=== PATIENT | female | born 1995 | race Hispanic/Latino ===

== ENCOUNTER 2018-04-18 12:19 | Emergency (ER) | payer SELFPAY ==
--- NOTE | 2018-04-18 12:48 | RAD REPORT ---
EXAM DESCRIPTION: CT - Head Brain Wo Cont - 04/18/2018 12:42 pm CLINICAL HISTORY: fall, seizure COMPARISON: No comparisonsHead Brain Wo Cont dated 01/26/2016; HEAD BRAIN W O CONTRAST dated 5 TECHNIQUE: All CT scans are performed using dose optimization technique as appropriate and may inclu de automated exposure control or mA/KV adjustment according to patient size. FINDINGS: No intracranial hemorrhage, hydrocephalus or extra-axial fluid collection.No areas of brai n edema or evidence of midline shift. The paranasal sinuses and mastoids are clear. The calvarium is intact. IMPRESSION: No acute intracranial abnormality.
[2018-04-18] MEDS ORDERED: levETIRAcetam 1,000 MG in NA CHLORIDE 0.9% 100 ML IV ONE (13:00)
[2018-04-18 13:03] LABS: Absolute Lymphocytes (CBC) 1.2 K/uL (0.7-4.9); Absolute Monocytes 0.3 K/uL (0.1-1.3); BUN Blood Urea Nitrogen 7 mg/dL (7-18); Basophils % 0.6 % (0-1.3); Bicarbonate 24 mmol/L (21-32); Eosinophils % 0.2 % (0-4.4); Glucose Level 103 mg/dL (74-106); Hematocrit 42.2 % (36.0-45.0); Lymphocytes % 11.4 % (15.3-44.8); MCV 94.6 fL (80-100); MPV 7.8 fL (7.6-11.3); Monocytes % 3.1 % (3.3-12.3); Potassium 4.1 mmol/L (3.5-5.1); RBC Red Blood Cell Count 4.46 M/uL (3.86-4.86); Sodium Level 143 mmol/L (136-145)
[2018-04-18 13:30] LABS: Urine Blood NEGATIVE (NEG); Urine Glucose NEGATIVE (NEG); Urine Protein NEGATIVE (NEG); Urine Specific Gravity 1.015 (1.005-1.030); Urine pH 7.5 (5.0-7.0)
[2018-04-18 13:33] LABS: Urine Bacteria <20 /HPF (<20); Urine Culture Reflex Order NOT NEEDED; Urine RBC <5 /HPF (NONE SEEN)
--- NOTE | 2018-04-18 13:41 | ER ---
Nurse's Notes [facility] Name: Janie Martin Age: 22 yrs Sex: Female : 1995 Arrival Date: 04/18/2018 Time: 12:21 Bed 6 Private MD: Diagnosis: Epilepsy and recurrent seizures Presentation: 04/18 12:22 Presenting complaint: EMS states: witnessed seizure by family lasted about 15 mins. sv Stated she might have been going to the restroom and fell down. 18G L AC, Ativan 2mg IVP, BP 109/71 HR-101, BS-107. Transition of care: patient was not received from another setting of care. Onset of symptoms was April 18, 2018. Risk Assessment: Do you want to hurt yourself or someone else? Patient reports no desire to harm self or others. Initial Sepsis Screen: Does the patient meet any 2 criteria? No. Patient's initial sepsis screen is negative. Does the patient have a suspected source of infection? No. Patient's initial sepsis screen is negative. Care prior to arrival: Medication(s) given: Ativan 2 mg IVP IV initiated. 18 GA, in the left antecubital area, Glucose check: 107. 12:22 Method Of Arrival: EMS: [facility] sv 12:22 Acuity: NBA 3 sv Triage Assessment: 12:22 General: Appears in no apparent distress. comfortable, well developed, Behavior is sv calm, cooperative, appropriate for age. Pain: Complains of pain in head Pain currently is 3 out of 10 on a pain scale. EENT: No signs and/or symptoms were reported regarding the EENT system. Neuro: Level of Consciousness is awake, alert, obeys commands, Oriented to person, place, time, situation, Moves all extremities. Full function Speech is normal. Respiratory: Respiratory effort is even, unlabored, Respiratory pattern is regular, symmetrical. Derm: Skin is pink, warm \T\ dry. 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 - Ebola Screening: : No symptoms or risks identified at this time. - Family history:: not pertinent. - Social history:: Smoking status: Patient/guardian denies using tobacco. - Hospitalizations: : No recent hospitalization is reported. Screenin:34 Abuse screen: Denies threats or abuse. Denies injuries from another. Nutritional sv screening: No deficits noted. Tuberculosis screening: No symptoms or risk factors identified. Fall Risk None identified. Assessment: 13:04 Reassessment: Patient appears in no apparent distress at this time. No changes from sv previously documented assessment. Patient and/or family updated on plan of care and expected duration. Pain level reassessed. Patient is alert, oriented x 3, equal unlabored respirations, skin warm/dry/pink. 14:01 Reassessment: Patient appears in no apparent distress at this time. Patient and/or sv family updated on plan of care and expected duration. Pain level reassessed. Patient is alert, oriented x 3, equal unlabored respirations, skin warm/dry/pink. Vital Signs: 12:23 BP 116 / 74; Pulse 102; Resp 16; Temp 99.1; Pulse Ox 99% ; sv [place] Coma Score: 12:22 Eye Response: spontaneous(4). Verbal Response: oriented(5). Motor Response: obeys sv commands(6). Total: 15. ED Course: 12:21 Patient arrived in ED. iw 12:22 Maintain EMS IV. Dressing intact. Good blood return noted. Site clean \T\ dry. Gauge \T\ sv site: 18G L AC. 12:25 Vish[facility] Moffett [facility] is [facility]. jr8 12:25 Jaziel Franks MD is Attending Physician. jr8 12:25 Initial lab(s) drawn, by ED staff, sent to lab. sv 12:25 Patient has correct armband on for positive identification. Bed in low position. Call sv light in reach. Side rails up X2. Seizure precautions initiated. Pulse ox on. NIBP on. 12:25 Arm band placed on right wrist. sv 12:28 Merlene Wilkinson RN is Primary Nurse. sv 12:30 Triage completed. sv 12:[address] via stretcher. sv 12:35 CT completed. Patient tolerated procedure well. Patient moved to CT via stretcher. sj Patient moved back from CT. 12:42 CT Head Brain wo Cont In Process Unspecified. EDMS 14:01 No provider procedures requiring assistance completed. IV discontinued, intact, sv bleeding controlled, No redness/swelling at site. Pressure dressing applied. Administered Medications: 13:04 Drug: Keppra 1000 mg Route: IV; Rate: 1 calculated rate; Site: left antecubital; sv 13:20 Follow up: Response: No adverse reaction; IV Status: Completed infusion sg Outcome: 13:40 Discharge ordered by . rn 14:02 Discharged to home via wheelchair, with family. sv 14:02 Condition: stable 14:02 Discharge instructions given to patient, family, Instructed on discharge instructions, follow up and referral plans. medication usage, Demonstrated understanding of instructions, follow-up care, medications, Prescriptions given X 1. 14:03 Patient left the ED. sv Signatures: Dispatcher [employer] EDOH Merlene Wilkinson RN RN sv Gay, Steven, RN RN sg Jones, Susan sj Williams, Irene, RN RN iw Nieto, Roman, MD MD rn Roszak, Josh, PA PA jr8
--- NOTE | 2018-04-18 13:42 | EDPHYS ---
Physician Documentation [facility] Name: Janie Martin Age: 22 yrs Sex: Female : 1995 Arrival Date: 04/18/2018 Time: 12:21 Bed 6 Private MD: ED Physician Jaziel Franks HPI: 04/18 12:31 This 22 yrs old Female presents to ER via EMS with complaints of Seizure. rn 12:31 The patient presents after having a single isolated seizure. Seizure onset: just prior rn to arrival. Associated injury: Head/face:. Current symptoms: confusion. The patient has experienced similar episodes in the past. 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 + mild headache, fell while walking, found on floor by family. . 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 - Ebola Screening: : No symptoms or risks identified at this time. - Family history:: not pertinent. - Social history:: Smoking status: Patient/guardian denies using tobacco. - Hospitalizations: : No recent hospitalization is reported. ROS: 12:31 Constitutional: Negative for fever, chills, and weight loss, Eyes: Negative for injury, rn pain, redness, and discharge, Neck: Negative for injury, pain, and swelling, Cardiovascular: Negative for chest pain, palpitations, and edema, Respiratory: Negative for shortness of breath, cough, wheezing, and pleuritic chest pain, Abdomen/GI: Negative for abdominal pain, nausea, vomiting, diarrhea, and constipation, MS/Extremity: Negative for injury and deformity, Skin: Negative for injury, rash, and discoloration, Neuro: + headache and seizure Exam: 12:31 Constitutional: This is a well developed, well nourished patient who is awake, alert, rn and in no acute distress. Head/Face: Normocephalic, atraumatic. Eyes: Pupils equal round and reactive to light, extra-ocular motions intact. Lids and lashes normal. Conjunctiva and sclera are non-icteric and not injected. Cornea within normal limits. Periorbital areas with no swelling, redness, or edema. ENT: MMM Neck: Trachea midline, no thyromegaly or masses palpated, and no cervical lymphadenopathy. Supple, full range of motion without nuchal rigidity, or vertebral point tenderness. No Meningismus. Cardiovascular: tachycardic, regular, no murmur Respiratory: Lungs have equal breath sounds bilaterally, clear to auscultation and percussion. No rales, rhonchi or wheezes noted. No increased work of breathing, no retractions or nasal flaring. Abdomen/GI: Soft, non-tender, with normal bowel sounds. No distension or tympany. No guarding or rebound. No evidence of tenderness throughout. MS/ Extremity: Pulses equal, no cyanosis. Neurovascular intact. Full, normal range of motion. Equal circumference. Neuro: Awake and alert, GCS 15, oriented to person, and situation. Cranial nerves II-XII grossly intact. Motor strength 5/5 in all extremities. Sensory grossly intact. 13:32 ECG was reviewed by the Attending Physician. rn Vital Signs: 12:23 BP 116 / 74; Pulse 102; Resp 16; Temp 99.1; Pulse Ox 99% ; sv [place] Coma Score: 12:22 Eye Response: spontaneous(4). Verbal Response: oriented(5). Motor Response: obeys sv commands(6). Total: 15. MDM: 12:25 Patient medically screened. [facility], [place] 13:39 Differential diagnosis: seizure. Data reviewed: vital signs, nurses notes, lab test rn result(s), EKG, radiologic studies, CT scan, and as a result, I will discharge patient. Counseling: I had a detailed discussion with the patient and/or guardian regarding: the historical points, exam findings, and any diagnostic results supporting the discharge/admit diagnosis, lab results, radiology results, the need for outpatient follow up, to return to the emergency department if symptoms worsen or persist or if there are any questions or concerns that arise at home. Response to treatment: the patient's symptoms have markedly improved after treatment, the patient's condition has returned to base line, the patient is now symptom free, and as a result, I will discharge patient. Special discussion: I discussed with the patient/guardian in detail that at this point there is no indication for admission to the hospital. It is understood, however, that if the symptoms persist or worsen the patient needs to return immediately for re-evaluation. Based on the history and exam findings, there is no indication for further emergent testing or inpatient evaluation. I discussed with the patient/guardian the need to see the neurologist for further evaluation of the symptoms. ED course: Mother here, states not taking her medication, knows she has run out for a while now.. 04/18 12:27 Order name: CBC with Diff; Complete Time: 13:09 rn 04/18 12:27 Order name: Basic Metabolic Panel; Complete Time: 13:09 rn 04/18 12:27 Order name: CT Head Brain wo Cont; Complete Time: 12:58 rn 04/18 12:27 Order name: Urine Microscopic Only; Complete Time: 13:35 rn 04/18 13:28 Order name: Urine Dipstick--Ancillary (enter results); Complete Time: 13:32 bd 04/18 13:28 Order name: Urine --Ancillary (enter results); Complete Time: 13:32 bd 04/18 12:27 Order name: IV Start; Complete Time: 12:43 rn 04/18 12:27 Order name: Urine Test (obtain specimen); Complete Time: 13:17 rn 04/18 12:27 Order name: Urine Dipstick-Ancillary (obtain specimen); Complete Time: 13:18 rn 04/18 12:28 Order name: EKG; Complete Time: 12:28 rn EC:32 Rate is 94 beats/min. Rhythm is regular. QRS [place] is Normal. NE interval is normal. QRS rn interval is normal. QT interval is normal. No Q waves. T waves are Normal. No ST changes noted. Clinical impression: Normal ECG. Interpreted by me. Administered Medications: 13:04 Drug: Keppra 1000 mg Route: IV; Rate: 1 calculated rate; Site: left antecubital; sv 13:20 Follow up: Response: No adverse reaction; IV Status: Completed infusion sg Disposition: 04/18/18 13:40 Discharged to Home. Impression: Epilepsy and recurrent seizures. - Condition is Stable. - Discharge Instructions: Seizure, Adult. - Prescriptions for Keppra 500 mg Oral Tablet - take 1 tablet by ORAL route every 12 hours; 60 tablet. - Medication Reconciliation Form, Thank You Letter, Antibiotic Education, Prescription Opioid Use form. - Follow up: Private Physician; When: As needed; Reason: Recheck today's complaints, Re-evaluation by your physician. - Problem is new. - Symptoms have improved. Signatures: Dispatcher [employer] EDMS Merlene Wilkinson RN RN sv Nieto, Roman, MD MD rn Roszak, Josh, PA PA jr8 Gay, Steven RN sg Corrections: (The following items were deleted from the chart) 14:03 13:40 04/18/2018 13:40 Discharged to Home. Impression: Epilepsy and recurrent seizures. sv Condition is Stable. Forms are Medication Reconciliation Form, Thank You Letter, Antibiotic Education, Prescription Opioid Use. Follow up: Private Physician; When: As needed; Reason: Recheck today's complaints, Re-evaluation by your physician. Problem is new. Symptoms have improved. rn
--- NOTE | 2018-04-18 17:05 | EKG ---
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
== END 2018-04-18 14:03 | disposition home or self-care (01) ==
LOC: ER 12:19
DX: G40.802 Other epilepsy, not intractable, without status epilepticus (principal)
CPT/HCPCS: 36415; 70450; 80048; 81003; 81015; 81025; 85025; 93005; 96365; 99284; J1953

== ENCOUNTER 2018-05-12 14:07 | Emergency (ER) | payer SELFPAY ==
[2018-05-12 15:21] LABS: Urine Bacteria 20-50 /HPF (<20); Urine Culture Reflex Order NOT NEEDED
--- NOTE | 2018-05-12 15:36 | ER ---
Nurse's Notes [facility] Name: Janie Martin Age: 22 yrs Sex: Female : 1995 Arrival Date: 05/12/2018 Time: 14:11 Bed 17 Private MD: None, None Diagnosis: Urinary tract infection, site not specified;Malaise and fatigue Presentation: 05/12 14:14 Presenting complaint: Patient states: fever, chills, body aches for 2 days. Transition la1 of care: patient was not received from another setting of care. Onset of symptoms was May 12, 2018. Risk Assessment: Do you want to hurt yourself or someone else? Patient reports no desire to harm self or others. Initial Sepsis Screen: Does the patient meet any 2 criteria? No. Patient's initial sepsis screen is negative. Does the patient have a suspected source of infection? No. Patient's initial sepsis screen is negative. Care prior to arrival: None. 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 - Social history:: Smoking status: Patient uses tobacco products, denies chronic smoking, but will smoke occasionally. - Ebola Screening: : No symptoms or risks identified at this time. Screenin:36 Abuse screen: Denies threats or abuse. Nutritional screening: No deficits noted. em Tuberculosis screening: No symptoms or risk factors identified. Fall Risk None identified. Assessment: 15:00 General: Appears in no apparent distress. uncomfortable, Behavior is calm, cooperative, em Reports fever for 1-2 days. Pain: Complains of pain in base of the skull Pain currently is 8 out of 10 on a pain scale. Neuro: Level of Consciousness is awake, alert, obeys commands, Oriented to person, place, time, situation. Cardiovascular: Capillary refill < 3 seconds Patient's skin is warm and dry. Respiratory: Airway is patent Respiratory effort is even, unlabored, Respiratory pattern is regular, symmetrical, Breath sounds are clear bilaterally. Denies cough. GI: Abdomen is flat, Reports nausea, Patient currently denies vomiting. : Denies burning with urination. EENT: Denies nasal congestion. Derm: Skin is intact, Skin is pink, warm \T\ dry. Musculoskeletal: Range of motion: intact in all extremities. 15:40 Reassessment: Patient appears in no apparent distress at this time. Patient and/or em family updated on plan of care and expected duration. Pain level reassessed. Patient is alert, oriented x 3, equal unlabored respirations, skin warm/dry/pink. pt refused IV fluids and IV antibiotics, antibiotics will be given IM. Vital Signs: 14:15 BP 107 / 65; Pulse 110; Resp 16; Temp 98.8(O); Pulse Ox 100% on R/A; Weight 56.7 kg; la1 Height 5 ft. 0 in. (152.40 cm); 15:18 BP 104 / 70; Pulse 85; Resp 15; Temp 98.7(O); Pulse Ox 98% on R/A; mh5 14:15 Body Mass Index 24.41 (56.70 kg, 152.40 cm) la1 ED Course: 14:11 Patient arrived in ED. sb2 14:11 None, None is Private Physician. sb2 14:13 Celestina [facility]-C [facility]. snw 14:13 Calvin Cadet MD is Attending Physician. snw 14:14 Triage completed. la1 14:15 Arm band placed on right wrist. la1 15:05 Kali Guan LVN is Primary Nurse. em 15:19 Urine collected: clean catch specimen, gary colored. mh5 15:20 Urine --Ancillary (enter results) Sent. mh5 15:20 Urine Dipstick--Ancillary (enter results) Sent. mh5 15:20 Urine Culture Sent. mh5 15:20 Urine Microscopic Only Sent. mh5 15:20 Strep Sent. mh5 15:20 Flu Sent. mh5 15:36 Patient has correct armband on for positive identification. Placed in gown. Bed in low em position. Call light in reach. 15:36 No provider procedures requiring assistance completed. Patient did not have IV access em during this emergency room visit. Administered Medications: 15:34 Not Given (Patient Refused): NS 0.9% 1000 ml IV at 1 bolus Per protocol; 1000 mL bolus snw 15:34 Not Given (Patient Refused): Rocephin - (cefTRIAXone) 1 grams IVPB once over 30 mins; snw (mix in 50 mL NS) 15:55 Drug: Rocephin (cefTRIAXone) 1 grams Route: IM; Site: right gluteus; em 16:07 Follow up: Response: No adverse reaction em Outcome: 15:35 Discharge ordered by MD. snw 15:58 Discharged to home ambulatory. em 15:58 Condition: good 15:58 Discharge instructions given to patient, Instructed on discharge instructions, follow up and referral plans. medication usage, Demonstrated understanding of instructions, follow-up care, medications, Prescriptions given X 2. 16:08 Patient left the ED. em Addendum: 05/15/2018 07:34 Addendum: Culture Results: Positive urine culture. No further action required. Bacteria s s sensitive to prescribed antibiotic. Signatures: Celestina Mejía, MAMMOGRAPHY SUPERVISOR-C MAMMOGRAPHY SUPERVISOR-Csnw Kali Guan, CELLULOSE INSULATION HELPER CELLULOSE INSULATION HELPER em Dai Epperson RN RN ss Attema, Lee, RN RN Yazmin Gomes [facility] Malka Queen2
--- NOTE | 2018-05-12 15:36 | EDPHYS ---
Physician Documentation [facility] Name: Janie Martin Age: 22 yrs Sex: Female : 1995 Arrival Date: 05/12/2018 Time: 14:11 Bed 17 Private MD: None, None ED Physician Calvin Cadet HPI: 05/12 15:48 This 22 yrs old Female presents to ER via Ambulatory with complaints of Fever, snw Body Aches. 15:48 The patient reports fever, that was measured at 100.2 degrees Fahrenheit. Onset: The snw symptoms/episode began/occurred suddenly, 3 day(s) ago, and became persistent. Associated signs and symptoms: Pertinent positives: decreased appetite, headache, myalgias. Severity of symptoms: At their worst the symptoms were moderate. The patient has not experienced similar symptoms in the past. It is unknown whether or not the patient has recently seen a physician. 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 - Social history:: Smoking status: Patient uses tobacco products, denies chronic smoking, but will smoke occasionally. - Ebola Screening: : No symptoms or risks identified at this time. ROS: 15:48 Eyes: Negative for injury, pain, redness, and discharge, ENT: Negative for injury, snw pain, and discharge, Neck: Negative for injury, pain, and swelling, Cardiovascular: Negative for chest pain, palpitations, and edema, Respiratory: Negative for shortness of breath, cough, wheezing, and pleuritic chest pain, Abdomen/GI: Negative for abdominal pain, nausea, vomiting, diarrhea, and constipation, Back: Negative for injury and pain, : Negative for injury, bleeding, discharge, and swelling, MS/Extremity: Negative for injury and deformity, Skin: Negative for injury, rash, and discoloration. 15:48 Constitutional: Positive for body aches, fever, malaise, poor PO intake. 15:48 Neuro: Positive for headache. Exam: 15:48 Constitutional: This is a well developed, well nourished patient who is awake, alert, snw and in no acute distress. Head/Face: Normocephalic, atraumatic. Eyes: Pupils equal round and reactive to light, extra-ocular motions intact. Lids and lashes normal. Conjunctiva and sclera are non-icteric and not injected. Cornea within normal limits. Periorbital areas with no swelling, redness, or edema. ENT: Nares patent. No nasal discharge, no septal abnormalities noted. Tympanic membranes are normal and external auditory canals are clear. Oropharynx with no redness, swelling, or masses, exudates, or evidence of obstruction, uvula midline. Mucous membranes moist. Neck: Trachea midline, no thyromegaly or masses palpated, and no cervical lymphadenopathy. Supple, full range of motion without nuchal rigidity, or vertebral point tenderness. No Meningismus. Chest/axilla: Normal chest wall appearance and motion. Nontender with no deformity. No lesions are appreciated. Cardiovascular: Regular rate and rhythm with a normal S1 and S2. No gallops, murmurs, or rubs. Normal PMI, no JVD. No pulse deficits. Respiratory: Lungs have equal breath sounds bilaterally, clear to auscultation and percussion. No rales, rhonchi or wheezes noted. No increased work of breathing, no retractions or nasal flaring. Abdomen/GI: Soft, non-tender, with normal bowel sounds. No distension or tympany. No guarding or rebound. No evidence of tenderness throughout. Back: No spinal tenderness. No costovertebral tenderness. Full range of motion. Skin: Warm, dry with normal turgor. Normal color with no rashes, no lesions, and no evidence of cellulitis. MS/ Extremity: Pulses equal, no cyanosis. Neurovascular intact. Full, normal range of motion. Neuro: Awake and alert, GCS 15, oriented to person, place, time, and situation. Cranial nerves II-XII grossly intact. Motor strength 5/5 in all extremities. Sensory grossly intact. Cerebellar exam normal. Normal gait. Vital Signs: 14:15 BP 107 / 65; Pulse 110; Resp 16; Temp 98.8(O); Pulse Ox 100% on R/A; Weight 56.7 kg; la1 Height 5 ft. 0 in. (152.40 cm); 15:18 BP 104 / 70; Pulse 85; Resp 15; Temp 98.7(O); Pulse Ox 98% on R/A; mh5 14:15 Body Mass Index 24.41 (56.70 kg, 152.40 cm) la1 MDM: 14:53 Patient medically screened. snw 15:47 Data reviewed: vital signs, nurses notes. Data interpreted: Pulse oximetry: on room air snw is 98 %. Interpretation: normal. Counseling: I had a detailed discussion with the patient and/or guardian regarding: the historical points, exam findings, and any diagnostic results supporting the discharge/admit diagnosis, lab results, the need for outpatient follow up, to return to the emergency department if symptoms worsen or persist or if there are any questions or concerns that arise at home. Refusal of service: The patient/guardian displays adequate decision making capability and despite a detailed discussion of alternatives, benefits, risks, and consequences refuses: Pt prefers IM antibiotics, declines IVF and IV abx. Special discussion: Based on the history and exam findings, there is no indication for further emergent testing or inpatient evaluation. I discussed with the patient/guardian the need to see the primary care provider for further evaluation of the symptoms. 05/12 14:13 Order name: Flu; Complete Time: 15:49 snw 05/12 14:13 Order name: Strep; Complete Time: 15:49 snw 05/12 14:13 Order name: Urine Culture snw 05/12 14:13 Order name: Urine Microscopic Only; Complete Time: 15:34 snw 05/12 15:17 Order name: Urine Dipstick--Ancillary (enter results) 05/12 15:17 Order name: Urine --Ancillary (enter results) 05/12 14:13 Order name: Urine Test (obtain specimen); Complete Time: 15:05 snw 05/12 14:13 Order name: Urine Dipstick-Ancillary (obtain specimen); Complete Time: 15:05 snw 05/12 15:49 Order name: Throat Culture EDMS Administered Medications: 15:34 Not Given (Patient Refused): NS 0.9% 1000 ml IV at 1 bolus Per protocol; 1000 mL bolus snw 15:34 Not Given (Patient Refused): Rocephin - (cefTRIAXone) 1 grams IVPB once over 30 mins; snw (mix in 50 mL NS) 15:55 Drug: Rocephin (cefTRIAXone) 1 grams Route: IM; Site: right gluteus; em 16:07 Follow up: Response: No adverse reaction em Disposition: 17:25 Co-signature as Attending Physician, Calvin Cadet MD I agree with the assessment and kdr plan of care. Disposition: 05/12/18 15:35 Discharged to Home. Impression: Urinary tract infection, site not specified, Malaise and fatigue. - Condition is Stable. - Discharge Instructions: Dehydration, Adult, Urinary Tract Infection, Adult, Fatigue, Rehydration, Adult. - Prescriptions for Augmentin 875- 125 mg Oral Tablet - take 1 tablet by ORAL route every 12 hours for 10 days; 20 tablet. promethazine 25 mg Oral Tablet - take 1 tablet by ORAL route every 6 hours As needed; 20 tablet. - Work release form, Medication Reconciliation Form, Thank You Letter, Antibiotic Education, Prescription Opioid Use form. - Follow up: Emergency Department; When: As needed; Reason: Worsening of condition. Follow up: Private Physician; When: 1 - 2 days; Reason: Recheck today's complaints, Continuance of care, Re-evaluation by your physician. Signatures: Dispatcher [employer] EDCalvin Camara MD MD [facility] Celestina Mejía, FARM REPORTER-C FARM REPORTER-Csnw Kali Guan, RADIAL ARM SAW OPERATOR RADIAL ARM SAW OPERATOR em Robert Hamm RN RN la1 Corrections: (The following items were deleted from the chart) 16:08 15:35 05/12/2018 15:35 Discharged to Home. Impression: Urinary tract infection, site em not specified; Malaise and fatigue. Condition is Stable. Forms are Medication Reconciliation Form, Thank You Letter, Antibiotic Education, Prescription Opioid Use. Follow up: Emergency Department; When: As needed; Reason: Worsening of condition. Follow up: Private Physician; When: 1 - 2 days; Reason: Recheck today's complaints, Continuance of care, Re-evaluation by your physician. snw
[2018-05-12] MEDS ORDERED: CEFTRIAXONE 1000 MG/VIAL ONE (15:51)
[2018-05-12] MEDS ORDERED: LIDOCAINE 1% MPF 2 ML AMPULE ONE (15:51)
[2018-05-12 17:59] LABS: Urine Blood 2+ (NEG); Urine Glucose TRACE (NEG); Urine Protein 3+ (NEG); Urine Specific Gravity 1.025 (1.005-1.030)
== END 2018-05-12 16:08 | disposition home or self-care (01) ==
LOC: ER 14:07
DX: N39.0 Urinary tract infection, site not specified (principal); R53.81 Other malaise; F17.200 Nicotine dependence, unspecified, uncomplicated
CPT/HCPCS: 81003; 81015; 81025; 87070; 87077; 87081; 87086; 87088; 87186; 87804; 96372; 99283; J2001

== ENCOUNTER 2020-07-27 11:19 | Emergency (ER) | payer SELFPAY ==
[2020-07-27] MEDS ORDERED: METOCLOPRAMIDE 10 MG/2mL INJ ONE (13:28)
[2020-07-27 13:29] LABS: Urine Blood NEGATIVE (NEG); Urine Glucose NEGATIVE (NEG); Urine Protein NEGATIVE (NEG); Urine pH 7.5 (5.0-7.0)
[2020-07-27] MEDS ORDERED: NA CHLORIDE 0.9% 1,000 ML ONE (13:29)
[2020-07-27] MEDS ORDERED: DIPHENHYDRAMINE 50 MG/ML VIAL ONE (13:29)
--- NOTE | 2020-07-27 13:45 | RAD REPORT ---
EXAM DESCRIPTION: CT - Head Brain Wo Cont - 07/27/2020 1:39 pm CLINICAL HISTORY: HEADACHE Headache, nausea and vomiting COMPARISON: Head Brain Wo Cont dated 04/18/2018; Head Brain Wo Cont dated 01/26/2016 TECHNIQUE: All CT scans are performed using dose optimization technique as appropriate and may inclu de automated exposure control or mA/KV adjustment according to patient size. FINDINGS: No intracranial hemorrhage, hydrocephalus or extra-axial fluid collection.No areas of brai n edema or evidence of midline shift. The paranasal sinuses and mastoids are clear. The calvarium is intact. IMPRESSION: No acute intracranial abnormality.
[2020-07-27] MEDS ORDERED: dexAMETHasone 4 MG/ML VIAL ONE (15:08)
[2020-07-27] MEDS ORDERED: KETOROLAC 30 MG/ML INJ ONE (15:08)
--- NOTE | 2020-07-27 16:18 | ER ---
Nurse's Notes [facility] Name: Janie Martin Age: 24 yrs Sex: Female : 1995 Arrival Date: 07/27/2020 Time: 11:22 Bed 18 Private MD: Diagnosis: Headache Presentation: 07/27 11:48 Chief complaint: Patient states: [place] with N/V since Monday. Aleve helped a lot ll1 yesterday. Coronavirus screen: Client denies travel out of the [place] in the last 14 days. At this time, the client does not indicate any symptoms associated with coronavirus-19. Ebola Screen: Patient denies travel to an Ebola-affected area in the 21 days before illness onset. Initial Sepsis Screen: Does the patient meet any 2 criteria? No. Patient's initial sepsis screen is negative. Does the patient have a suspected source of infection? Yes: Other: head. Risk Assessment: Do you want to hurt yourself or someone else? Patient reports no desire to harm self or others. Onset of symptoms was July 24, 2020. 11:48 Method Of Arrival: Ambulatory ll1 11:48 Acuity: NBA 3 ll1 Historical: - Allergies: 11:48 No Known Allergies; ll1 - PMHx: 11:48 Arthritis; Seizures; ll1 - PSHx: 11:48 None; ll1 - Immunization history:: Flu vaccine is up to date. - Social history:: Smoking status: Patient denies any tobacco usage or history of. Screenin:55 Abuse screen: Denies threats or abuse. Nutritional screening: No deficits noted. em Tuberculosis screening: No symptoms or risk factors identified. Fall Risk None identified. Assessment: 12:55 General: Appears in no apparent distress. uncomfortable, Behavior is calm, cooperative, em appropriate for age, Denies fever. Pain: Complains of pain in face Pain currently is 10 out of 10 on a pain scale. Pain began 2-3 days ago. Neuro: Level of Consciousness is awake, alert, obeys commands, Oriented to person, place, time, situation, Appropriate for age Pipe Supervisor are equal bilaterally Moves all extremities. Gait is steady, Speech is normal, Facial symmetry appears normal, Reports headache Denies blurred vision dizziness. Cardiovascular: Capillary refill < 3 seconds Patient's skin is warm and dry. Respiratory: Airway is patent Respiratory effort is even, unlabored, Respiratory pattern is regular, symmetrical. GI: Abdomen is flat, Reports nausea, vomiting, Patient currently denies. Derm: Skin is intact, is healthy with good turgor, Skin is pink, warm \T\ dry. Musculoskeletal: Capillary refill < 3 seconds, Range of motion: intact in all extremities. 14:17 Reassessment: Patient appears in no apparent distress at this time. Patient and/or em family updated on plan of care and expected duration. Pain level reassessed. Patient is alert, oriented x 3, equal unlabored respirations, skin warm/dry/pink. rates pain 5/10 Patient states feeling better. 15:30 Reassessment: Patient appears in no apparent distress at this time. Patient and/or em family updated on plan of care and expected duration. Pain level reassessed. Patient is alert, oriented x 3, equal unlabored respirations, skin warm/dry/pink. Vital Signs: 11:48 BP 124 / 91; Pulse 68; Resp 17; Temp 97.5; Pulse Ox 100% ; Weight 61.23 kg; Height 5 ll1 ft. 1 in. (154.94 cm); Pain 10/10; 13:00 BP 118 / 74; Pulse 71; Resp 18; Pulse Ox 99% on R/A; em 14:30 BP 112 / 76; Pulse 72; Resp 16; Pulse Ox 99% ; Pain 5/10; em 15:30 BP 108 / 70; Pulse 69; Resp 18; Pulse Ox 99% on R/A; Pain 0/10; em 11:48 Body Mass Index 25.51 (61.23 kg, 154.94 cm) ll1 ED Course: 11:22 Patient arrived in ED. mr 11:48 Arm band placed on Patient placed in an exam room, on a stretcher. ll1 11:50 Triage completed. ll1 12:36 Kali Guan, DEVAN is Primary Nurse. em 12:40 Edwin Curran PA is PHCP. [facility] 12:41 Jaziel Franks MD is Attending Physician. [facility] 12:55 Patient has correct armband on for positive identification. Bed in low position. Call em light in reach. Side rails up X2. Adult w/ patient. Pulse ox on. NIBP on. 13:05 Inserted saline lock: 20 gauge in right antecubital area, using aseptic technique. jp3 13:40 CT Head Brain wo Cont In Process Unspecified. EDMS 16:39 No provider procedures requiring assistance completed. IV discontinued, intact, em bleeding controlled, No redness/swelling at site. Pressure dressing applied. Administered Medications: 13:20 Drug: diphenhydrAMINE 25 mg Route: IVP; Site: right antecubital; em 14:51 Follow up: Response: No adverse reaction; Marked relief of symptoms; Pain is decreased em 13:22 Drug: NS 0.9% 1000 ml Route: IV; Rate: 1 bolus; Site: right antecubital; em 14:48 Follow up: IV Status: Completed infusion; IV Intake: 1000ml em 13:22 Drug: Reglan 20 mg Route: IVP; Site: right antecubital; em 14:50 Follow up: Response: No adverse reaction; Marked relief of symptoms; Pain is decreased em 15:14 Drug: Decadron - Dexamethasone 10 mg Route: IVP; Site: right antecubital; em 16:40 Follow up: Response: No adverse reaction; Marked relief of symptoms; Pain is decreased em 15:16 Drug: Ketorolac 30 mg Route: IVP; Site: right antecubital; em 16:40 Follow up: Response: No adverse reaction; Marked relief of symptoms; Pain is decreased em Intake: 14:48 IV: 1000ml; Total: 1000ml. em Outcome: 16:17 Discharge ordered by MD. [facility] 16:39 Discharged to home ambulatory, with family. em 16:39 Condition: good 16:39 Discharge instructions given to patient, family, Instructed on discharge instructions, follow up and referral plans. medication usage, Demonstrated understanding of instructions, follow-up care, medications, Prescriptions given X 2. 16:42 Patient left the ED. em Signatures: Dispatcher [employer] EDMS Edwin Curran PA PA jmm Rivera, Mary mr Kali Guan, RN RN em Luther Rodriguez jp3 Satinder Khan RN RN ll1
--- NOTE | 2020-07-27 16:18 | EDPHYS ---
Physician Documentation [facility] Name: Janie Martin Age: 24 yrs Sex: Female : 1995 Arrival Date: 07/27/2020 Time: : Bed 18 Private MD: ED Physician Jaziel Franks HPI: 07/27 13:02 This 24 yrs old Female presents to ER via Ambulatory with complaints of jmm Headache. 13:02 The patient complains of pain to the left frontal area, left temporal area and left jmm buddhism. Onset: The symptoms/episode began/occurred acutely, 2 hour(s) ago. Associated signs and symptoms: Pertinent positives: nausea, Photophobia. The patient has not experienced similar symptoms in the past. This is a 24 year old female with a history of epilepsy that presents to the ED with complaints of acute onset left sided headache beginning 2 hours prior to arrival. Patient complains of photophobia and vomiting. Historical: - Allergies: 11:48 No Known Allergies; ll1 - PMHx: 11:48 Arthritis; Seizures; ll1 - PSHx: 11:48 None; ll1 - Immunization history:: Flu vaccine is up to date. - Social history:: Smoking status: Patient denies any tobacco usage or history of. ROS: 13:02 Constitutional: Negative for fever, chills, and weight loss, Cardiovascular: Negative jmm for chest pain, palpitations, and edema, Respiratory: Negative for shortness of breath, cough, wheezing, and pleuritic chest pain. 13:02 Neuro: Positive for headache. 13:02 All other systems are negative. Exam: 13:02 Constitutional: This is a well developed, well nourished patient who is awake, alert, jmm and in no acute distress. Head/Face: atraumatic. Eyes: EOMI, no conjunctival erythema appreciated ENT: Moist Mucus Membranes Neck: Trachea midline, Supple Chest/axilla: Normal chest wall appearance and motion. Cardiovascular: Regular rate and rhythm. No edema appreciated Respiratory: Normal respirations, no respiratory distress appreciated 13:02 Skin: General appearance color normal MS/ Extremity: Moves all extremities, no obvious deformities appreciated, no edema noted to the lower extremities Neuro: Awake and alert, normal gait Psych: Behavior is normal, Mood is normal, Patient is cooperative and pleasant 13:02 Abdomen/GI: Inspection: abdomen appears normal, Bowel sounds: normal, Palpation: abdomen is soft and non-tender, in all quadrants, soft. Vital Signs: 11:48 BP 124 / 91; Pulse 68; Resp 17; Temp 97.5; Pulse Ox 100% ; Weight 61.23 kg; Height 5 ll1 ft. 1 in. (154.94 cm); Pain 10/10; 13:00 BP 118 / 74; Pulse 71; Resp 18; Pulse Ox 99% on R/A; em 14:30 BP 112 / 76; Pulse 72; Resp 16; Pulse Ox 99% ; Pain 5/10; em 15:30 BP 108 / 70; Pulse 69; Resp 18; Pulse Ox 99% on R/A; Pain 0/10; em 11:48 Body Mass Index 25.51 (61.23 kg, 154.94 cm) ll1 MDM: 12:57 Patient medically screened. [facility] 16:16 Data reviewed: vital signs, nurses notes. Counseling: I had a detailed discussion with abhishek the patient and/or guardian regarding: the historical points, exam findings, and any diagnostic results supporting the discharge/admit diagnosis, radiology results, the need for outpatient follow up, to return to the emergency department if symptoms worsen or persist or if there are any questions or concerns that arise at home. ED course: Pain relieved in the ED. Patient is advised to follow up with neuro for reevaluation. Patient is otherwise given strict return precautions. Patient understood and agrees with the plan of care. . 07/27 13:17 Order name: Urine Dipstick--Ancillary (enter results); Complete Time: 13:30 07/27 13:17 Order name: Urine --Ancillary (enter results); Complete Time: 13:30 07/27 13:01 Order name: CT Head Brain wo Cont; Complete Time: 13:49 [facility] 07/27 13:01 Order name: Saline Lock; Complete Time: 13:09 [facility] Administered Medications: 13:20 Drug: diphenhydrAMINE 25 mg Route: IVP; Site: right antecubital; em 14:51 Follow up: Response: No adverse reaction; Marked relief of symptoms; Pain is decreased em 13:22 Drug: NS 0.9% 1000 ml Route: IV; Rate: 1 bolus; Site: right antecubital; em 14:48 Follow up: IV Status: Completed infusion; IV Intake: 1000ml em 13:22 Drug: Reglan 20 mg Route: IVP; Site: right antecubital; em 14:50 Follow up: Response: No adverse reaction; Marked relief of symptoms; Pain is decreased em 15:14 Drug: Decadron - Dexamethasone 10 mg Route: IVP; Site: right antecubital; em 16:40 Follow up: Response: No adverse reaction; Marked relief of symptoms; Pain is decreased em 15:16 Drug: Ketorolac 30 mg Route: IVP; Site: right antecubital; em 16:40 Follow up: Response: No adverse reaction; Marked relief of symptoms; Pain is decreased em Disposition: 18:58 Co-signature as Attending Physician, Jaziel Franks MD. rn Disposition: 07/27/20 16:17 Discharged to Home. Impression: Headache. - Condition is Stable. - Discharge Instructions: General Headache Without Cause, Migraine Headache. - Medication Reconciliation Form, Thank You Letter, Antibiotic Education, Prescription Opioid Use form. - Follow up: Private Physician; When: 2 - 3 days; Reason: Recheck today's complaints, Continuance of care, Re-evaluation by your physician. Signatures: Dispatcher [employer] EDEdwin Rivera PA PA jmm Munoz, Edgar, RN RN Jaziel Reese MD MD rn Lewis, Lynsay, RN RN ll1 Corrections: (The following items were deleted from the chart) 16:42 16:17 07/27/2020 16:17 Discharged to Home. Impression: Headache. Condition is Stable. em Forms are Medication Reconciliation Form, Thank You Letter, Antibiotic Education, Prescription Opioid Use. Follow up: Private Physician; When: 2 - 3 days; Reason: Recheck today's complaints, Continuance of care, Re-evaluation by your physician. nazanin
[2020-07-27 20:36] VITALS: TEMP 97.5
[2020-07-27 20:37] VITALS: O2SAT 99
[2020-07-27 20:42] VITALS: BP 108/70
== END 2020-07-27 16:42 | disposition home or self-care (01) ==
LOC: ER 11:19
DX: R51.9 Headache, unspecified (principal)
CPT/HCPCS: 70450; 81003; 81025; 96361; 96374; 96375; 99284; J1100; J1200; J2765; J7030